=== PATIENT | female | born 1985 | race Caucasian/White ===

== ENCOUNTER 2020-08-13 16:15 | Emergency (ER) | payer OTHER, MEDICAID ==
[~2020-08-13] VITALS: Ht 165.1 cm; Wt 65.3 kg
--- NOTE | ~2020-08-13 | EMS ---
[facility] [address] [place] [address] EMS Patient Care Report Name: MYLA LINK [id number] Admission: 08/13/20 Attend Phys: Discharge: Date of : [birth year] Report #: [id number] THIS REPORT FOR: //name// Report Transmitted: 08/13/2020 19:02 EMS Care Summary [facility] Incident [id number] @ 08/13/2020 15:31 Incident Location [address] [place] [address] Patient MYLA LINK Female, 34 Years 1985 Patient Address [address] [place] [address] Patient History Anxiety Disorder (Panic Attacks),Depression,Post Traumatic Stress Disorder (PTSD), Patient Allergies Penicillin allergy, Chief Complaint Hallucinations Disposition Transported No Lights/[place] Dispatch Reason No Other Appropriate Choice Transported To [facility] Narrative MEd 1 and Engine 2 were dispatched for a [age] year-old female c/o hallucinations, hearing voices and was in an argument with her father. Chayo VARGAS was on scene prior to EMS and had us stage to control the situation. Upon EMS arrival, patient was standing outside of the residence accompanied by PD. Officer Thais approached me and reported that the patient was having a [facility] [address] [place] [address] EMS Patient Care Report Name: MYLA LINK Room: [facility]#: [id number] Admission: 08/13/20 Attend Phys: Discharge: Date of : [birth year] Report #: [id number] psychiatric episode. Talking to herself, hearing voices and hallucinating. Patient reports that she suffers from PTSD. Patient was assisted to the ambulance and secured via seatbelts in the jump seat. Med 1 went en route to [facility]. In the ambulance, patient's vitals were monitored. Patient kept yelling and then laughing hysterically as she looked up to the ceiling. Hospital report was given via radio with no questions or orders requested or received. Med 1 arrived at the hospital. Patient was assisted by walking into the ER without incident to room 3. Patient care was transferred to ER staff. Med 1 returned back into service. [id number] KShook Initial Vitals @16:10R: 18,BP: 118/76,Pain: 0/10,GCS: 15,SpO2: 99,Revised Trauma: 12, @15:58P: 62,R: 18,BP: 138/90,GCS: 15,SpO2: 99,Revised Trauma: 12, Assessments @15:46MENTAL:Person Oriented,Time Oriented,Place Oriented,Event Oriented,SKIN:HEENT:Head/Face: No Abnormalities,Neck/Airway: No Abnormalities,LUNG SOUNDS:General: No Abnormalities,Left Upper: No Abnormalities,Right Upper: No Abnormalities,ABDOMEN:General: No Abnormalities,Left Upper: No Abnormalities,Right Upper: No Abnormalities,PELVIS//GI:EXTREMITIES:Left Arm: No Abnormalities,Right Arm: No Abnormalities,PULSE:NEURO:No Abnormalities, Impression Behavioral/psychiatric episode Timeline 15:31,Call Received 15:31,Dispatched 15:31,En Route 15:45,On Scene 15:46,At Patient 15:51,Depart Scene 15:58,BP: 138/90 M,PULSE: 62,RR: 18 R,SPO2: 99 Ox,ETCO2: ,BG: ,PAIN: ,GCS: 15, 16:10,At Destination 16:10,BP: 118/76 M,PULSE: ,RR: 18 R,SPO2: 99 Ox,ETCO2: ,BG: ,PAIN: 0,GCS: 15, 16:40,Call Closed 16:40,[place] [address] EMS Patient Care Report Name: MYLA LINK [facility] [id number] Admission: 08/13/20 Attend Phys: Discharge: Date of : 89 Report #: [id number] Disclaimer v1.1 Copyright 2020 [employer] This EMS Care Summary contains data elements from the applicable legal record (which may be displayed differently). It is designed to provide pertinent information for the following purposes: continuity of care, clinical quality, and state data reporting. The complete legal record is available to ED staff and administrators of the receiving hospital in [employer]'s Patient Tracker. All data is provided "as is."
[2020-08-13 16:40] LABS: URINE BILIRUBIN NEGATIVE (Negative); URINE BLOOD TRACE (Negative); URINE CLARITY CLEAR; URINE COLOR YELLOW; URINE GLUCOSE-RANDOM NEGATIVE (Negative); URINE KETONES NEGATIVE (Negative); URINE LEUKOCYTES-REFLEX NEGATIVE (Negative); URINE NITRITE-REFLEX NEGATIVE (Negative); URINE PROTEIN NEGATIVE (Negative); URINE SPECIFIC GRAVITY <= 1.005 (1.005-1.030); URINE UROBILINOGEN 0.2 E.U./dl (0.2-1.0)
[2020-08-13 16:56] LABS: AMP/METHAMP Negative (Negative); BARBITURATES Negative (Negative); BENZODIAZEPINES Negative (Negative); COCAINE Negative (Negative); METHADONE Negative (Negative); OPIATES Negative (Negative); PCP Negative (Negative); THC Negative (Negative)
[2020-08-13 17:02] LABS: ABSOLUTE BASOPHILS 0.1 thou/uL (0.0-0.2); ABSOLUTE LYMPHOCYTES 1.7 thou/uL (0.8-5.3); ABSOLUTE MONOCYTES 0.5 thou/uL (0.0-1.2); ABSOLUTE NEUTROPHILS 6.2 thou/uL (1.6-8.1); EOSINOPHILS 0.3 %; HEMATOCRIT 45.5 % (37.0-47.0); HEMOGLOBIN 15.3 gm/dL (12.0-15.0); MCH 31.4 pg (26.0-34.0); MCHC 33.8 g/dL (28.0-37.0); MCV 92.9 fL (80.0-100.0); MONOCYTES 5.9 %; MPV 7.1 fl. (7.2-11.1); NUCLEATED RBCS 0 /100WBC; PLATELET COUNT* 379 thou/uL (150-400); POLYS 72.8 %; RBC 4.89 mil/uL (4.20-5.00); RDW-CV 12.4 % (10.5-14.5); WBC 8.6 thou/uL (4.0-11.0)
[2020-08-13 17:10] LABS: CALCIUM 9.3 mg/dL (8.5-10.1); CREATININE 0.7 mg/dL (0.6-1.3)
[2020-08-13 17:14] LABS: ALBUMIN 4.3 g/dL (3.4-5.0); TOTAL BILIRUBIN 0.9 mg/dL (<0.1-1.0); TOTAL PROTEIN 8.3 g/dL (6.4-8.2)
[2020-08-13 17:17] LABS: ACETAMINOPHEN < 2 ug/mL (10-30); ALCOHOL 220 mg/dL (<10); SALICYLATE < 2.8 mg/dL (2.8-20.0)
[2020-08-14 00:30] VITALS: BP 118/80
== END 2020-08-14 00:30 | disposition home or self-care (01) ==
LOC: M.ERS 16:15
PROVIDERS: Emergency Medicine Emergency Medical Services
DX: S00.81XA Abrasion of other part of head, initial encounter (principal); F10.129 Alcohol abuse with intoxication, unspecified; F23 Brief psychotic disorder; Y09 Assault by unspecified means; Y93.89 Activity, other specified; Y92.89 Other specified places as the place of occurrence of the external cause; Y99.8 Other external cause status; Y90.7 Blood alcohol level of 200-239 mg/100 ml